=== PATIENT | female | born 1985 | race Caucasian/White ===

== ENCOUNTER → 2024-05-31 | Outpatient (CLI) | payer BC ==
[~2024-05-31] MED LIST: MOTRIN 600600 MG/TAB PO; MUCINEX 60600 MG/TAB PO; PERCOCET 325 MG1 TA2 PO; PRENATAL VITAMI1 TA5 PO; TAMIFLU 75MG75 MG PO; TYLENOL 500MG500 MG PO; ZITHROMAX Z PA250 MG PO
== END ==
LOC: MC.RAD 08:50
DX: Z12.31 Encounter for screening mammogram for malignant neoplasm of breast (principal)